=== PATIENT | male | born 1930 | race Caucasian/White ===

== ENCOUNTER 2016-07-23 18:52 | Emergency (ER) | payer OTHER ==
--- NOTE | 2016-07-23 19:49 | PROVIDER DOCUMENTATION ---
HPI-Male Problem - General Source: patient - History of Present Illness-Male Radiation: reports: none Severity in ED: reports: mild Onset/Duration: reports: this afternoon Timing: reports: still present Context/Activities at Onset: reports: none Urinary Symptoms: reports: hematuria Associated Symptoms: reports: denies symptoms Similar Symptoms Previously?: No Recently seen or treated by another doctor?: No <Cindy Cramer - Last Filed: 07/23/16 20:57> <Sahil Cordova - Last Filed: 07/23/16 21:03> - General Chief Complaint: Male Stated Complaint: PASSING BLOOD IN URINE Time Seen by Provider: 07/23/16 19:20 Allergies/Adverse Reactions: Patient Allergies Allergy/AdvReac Type Severity Reaction Status Date / Time No Known Allergies Allergy Verified 04/03/16 20:58 Home Medications: Home Medication List Medication Instructions Recorded Confirmed Last Taken Type Aspirin 81 mg PO DAILY 04/03/16 07/23/16 04/02/16 History 81 MG ATORVAstatin [Lipitor] 40 mg PO DAILY 07/23/16 07/23/16 Unknown History Celecoxib 200 mg PO BID PRN 07/23/16 07/23/16 Unknown History Indapamide 2.5 mg PO DAILY 07/23/16 07/23/16 Unknown History Metformin E.r. [Glucophage Xr] 2,000 mg PO DAILY 07/23/16 07/23/16 Unknown History Saxagliptin [Onglyza] 5 mg PO DAILY 07/23/16 07/23/16 Unknown History Sennosides/Docusate Sodium 1 tab PO DAILY 07/23/16 07/23/16 Unknown History [Docusate Sodium-Senna Tablet] - History of Present Illness-Male Nature of Presenting Problem: 86 year old M presents to the ED with a cc of urinating blood. Pt states that it began this afternoon. Pt states that he called his PCP but they were not in the office. Pt states that he talked to the head of conservation doctor and was told to come to the ED. (Cindy Cramer) Review of Systems - Adult - REVIEW OF SYSTEMS - ADULT Constitutional: denies: chills, fever Eyes: reports: no symptoms reported Ears, Nose, Mouth & Throat: reports: no symptoms reported Cardiovascular: reports: no symptoms reported Respiratory: denies: cough, shortness of breath Gastrointestinal: denies: nausea, vomiting Genitourinary: reports: hematuria. denies: dysuria Musculoskeletal: denies: muscle aches, muscle weakness Integumentary: denies: skin sores/ulcer, skin thickening Neurological: reports: no symptoms reported Psychiatric: reports: no symptoms reported Endocrine: reports: no symptoms reported Hematologic/Lymphatic: reports: no symptoms reported Allergic/Immunologic: reports: no symptoms reported All Other Systems: Reviewed and Negative <Cindy Cramer - Last Filed: 07/23/16 20:57> Past History - Adult - PAST MEDICAL HISTORY-ADULT Review of Records: reports: Nursing Assessment Review, Medications Reviewed Major Childhood Illnesses: reports: denies history Psychiatric: reports: anxiety, depression Endocrine/Immune: reports: Diabetes - PRIOR SURGERIES/PROCEDURES Surgical/Procedure History: reports: joint replacement - IMMUNIZATION STATUS Childhood Immunizations: See Nurse Assessment Flu Vaccine: See Nurse Assessment - SOCIAL HISTORY Smoking: non-smoker Substance Use: none/never Alcohol Use Frequency: never <Cindy Cramer - Last Filed: 07/23/16 20:57> Physical Exam-General - PHYSICAL EXAM-ADULT Initial Vital Signs Reviewed: Yes - CONSTITUTIONAL General Appearance: appears well, alert, no apparent distress - RESPIRATORY Respiratory: chest non-tender, lungs clear, normal breath sounds - CARDIOVASCULAR Cardiovascular: normal peripheral pulses, regular rate, rhythm, no edema - GASTROINTESTINAL (ABDOMEN) Abdominal Exam: normal bowel sounds, non tender, soft - SKIN Integumentary: normal color, normal turgor, warm/dry - PSYCHIATRIC Psych/Mental Status: normal mood/affect, normal thought content, normal thought process, oriented x 3 <Cindy Cramer - Last Filed: 07/23/16 20:57> Progress - CT/MRI 1 CT Study: Renal Stone Impression: Abnormal (Cholelithiasis, No renal stones, no hydronephrosis, No bowel obstruction, No abscess, Diverticulosis, Normal appendix, Fat filled left inguinal hernia: Dr. Castillo-radiologist) <Cindy Cramer - Last Filed: 07/23/16 20:57> <Sahil Cordova - Last Filed: 07/23/16 21:03> - PLAN OF CARE/RESULTS Progress/Plan/Lab Results: plan of care: imaging, labs Orders Category Date Time Status RENAL STONE SEARCH [CT] Stat Exams 07/23/16 19:15 Taken CBC WITH DIFF [HEME] Stat Lab 07/23/16 19:43 Completed COMPREHENSIVE METABOLIC PANEL [CHEM] Stat Lab 07/23/16 19:43 Completed PROTIME WITH INR PL [COAG] Stat Lab 07/23/16 19:[address] W/POSS RFLX CULT [URINALYSIS] Stat Lab 07/23/16 19:00 Completed URINE CULTURE [RM] Routine Lab 07/23/16 20:49 Ordered Laboratory Tests 07/23/16 07/23/16 07/23/16 19:00 19:43 19:43 WBC 8.79 RBC 4.48 L Hgb 13.4 L Hct 38.9 L MCV 86.8 MCH 29.9 MCHC 34.4 RDW Std Deviation 15.0 H Plt Count 190 MPV 10.5 H Immature Gran % (Auto) 0.1 Neut % (Auto) 60.7 Lymph % (Auto) 26.5 [place] % (Auto) 7.6 Eos % (Auto) 4.4 Baso % (Auto) 0.7 Immature Gran # (Auto) 0.01 Neut # (Auto) 5.33 Lymph # (Auto) 2.33 [place] # (Auto) 0.67 H Eos # (Auto) 0.39 Baso # (Auto) 0.06 PT INR Sodium 135 L Potassium 3.9 Chloride 100 Carbon Dioxide 21 L Anion Gap 15 BUN 23 H Creatinine 1.3 H Estimated GFR/1.73 m2 52 BUN/Creatinine Ratio 18 Glucose 155 H Calculated Osmolality 277 Calcium 9.1 Total Bilirubin 0.70 AST 36 H ALT 20 Alkaline Phosphatase 41 Total Protein 7.4 Albumin 4.4 Globulin 3.0 Albumin/Globulin Ratio 1.0 Urine Source VOIDED Urine Color RED Urine Clarity BLOODY A Urine pH 6.5 Ur Specific [place] 1.020 Urine Protein 3+(500 mg/dL) A Urine Ketones TRACE Urine Blood 4+ Urine Nitrite POSITIVE A Urine Bilirubin NEGATIVE Urine Urobilinogen 1+(1 mg/dL) Urine Microscopic RBC TNTC A Urine WBC 1+ A Urine Microscopic WBC <10 Urine Bacteria 1+ Urine Glucose TRACE(50 mg/dL) A 07/23/16 19:43 WBC RBC Hgb Hct MCV MCH MCHC RDW Std Deviation Plt Count MPV Immature Gran % (Auto) Neut % (Auto) Lymph % (Auto) [place] % (Auto) Eos % (Auto) Baso % (Auto) Immature Gran # (Auto) Neut # (Auto) Lymph # (Auto) [place] # (Auto) Eos # (Auto) Baso # (Auto) PT 12.9 INR 0.94 Sodium Potassium Chloride Carbon Dioxide Anion Gap BUN Creatinine Estimated GFR/1.73 m2 BUN/Creatinine Ratio Glucose Calculated Osmolality Calcium Total Bilirubin AST ALT Alkaline Phosphatase Total Protein Albumin Globulin Albumin/Globulin Ratio Urine Source Urine Color Urine Clarity Urine pH Ur Specific [place] Urine Protein Urine Ketones Urine Blood Urine Nitrite Urine Bilirubin Urine Urobilinogen Urine Microscopic RBC Urine WBC Urine Microscopic WBC Urine Bacteria Urine Glucose Vital Signs - 24 hr 07/23/16 18:59 Temperature 98 F Pulse Rate 81 Respiratory 18 Rate Blood Pressure 170/75 O2 Sat by Pulse 98 Oximetry Pt given results and will be d/c home w/o rx to follow up with urology. Pt verbally understood instructions. PT remained clinically stable throughout the course of the ED stay and will return if symptoms worsen. (Cindy Cramer) Departure <Cindy Cramer - Last Filed: 07/23/16 20:57> - Departure Time of Disposition Order: 21:02 Certified Medical Emergency: Emergent <Sahil Cordova - Last Filed: 07/23/16 21:03> - Departure DIAGNOSIS: Hematuria Disposition: HOME 01 Condition: Good Additional Instructions: Drink plenty of liquids. Follow up with Urologist. ED Follow Up Instructions: You have been treated by a care provider in the Emergency Department. These instructions are being provided to you so you can have an understanding of how to care for yourself upon discharge. Upon discharge from the Emergency Department, you are responsible for making arrangements for follow-up care by a physician of your choice. Take all prescribed medications as directed. Return to the Emergency Department immediately for any new or worsening symptoms. You may call the Physician Referral phone number at [phone] to obtain a list of Physicians who are taking new patients. Referrals: Justin Moe MD [Primary Care Provider] - Carlos Eduardo Baez MD [STAFF PHYSICIAN] - Attestation - Scribe Verification/Attestation Scribe:: Cindy Cramer Acting as Scribe for:: Sahil Cordova Scribe documention review:: This chart was documented by a scribe and accurately reflects the service the provider performed and the decisions made by the provider. <Cindy Cramer - Last Filed: 07/23/16 20:57> Physician Attestation - Physician Attestation I, the provider, attest to the following statement:: Sahil Cordova Physician documentation Attestation:: This documentation recorded by the scribe accurately reflects the service I personally performed and the decisions made by me. <Cindy Cramer - Last Filed: 07/23/16 20:57>
[2016-07-23 19:53] LABS: MANUAL DIFF NEEDED? NO
[2016-07-23 19:57] LABS: BASO% 0.7 % (0.0-0.8); EOS# 0.39 X1000 (0.0-0.7); EOS% 4.4 % (0.0-10.0); HEMATOCRIT 38.9 % (42.0-52.0); HEMOGLOBIN 13.4 g/dL (14.0-18.0); IMM GRAN# 0.01 X1000 (0.0-0.04); IMM GRAN% 0.1 % (0.0-0.5); LYMPH# 2.33 X1000 (1.2-3.4); LYMPH% 26.5 % (20.5-51.1); MCH 29.9 PG (27-31); MCHC 34.4 g/dL (33-37); MCV 86.8 FL (81-99); MONO# 0.67 X1000 (0.11-0.59); MONO% 7.6 % (1.7-9.3); MPV 10.5 FL (7.4-10.4); NEUT% 60.7 % (42.2-75.2); PLT 190 X1000 (130-400); RBC 4.48 XMIL (4.7-6.1)
[2016-07-23 20:14] LABS: ALBUMIN 4.4 g/dL (3.5-5.0); CALCIUM 9.1 mg/dL (8.8-10.2); POTASSIUM 3.9 mmol/L (3.5-5.1); TOTAL BILIRUBIN 0.7 mg/dL (0.20-1.00); TOTAL PROTEIN 7.4 g/dL (6.3-8.3)
[2016-07-23 20:15] LABS: URINE SOURCE VOIDED
[2016-07-23 20:19] LABS: INR 0.94 (0.86-1.15); PROTIME 12.9 Seconds (12.1-15.5)
[2016-07-23 20:49] LABS: BILIRUBIN URINE NEGATIVE (NEGATIVE); BLOOD URINE 4+ (NEGATIVE); CLARITY BLOODY (CLEAR); COLOR RED; LEUKOCYTES URINE 1+ (NEGATIVE); NITRITE URINE POSITIVE (NEGATIVE); PH URINE 6.5; URINE CULTURE PL NEEDED? YES; URINE RBC TNTC /HPF (<10); URINE WBC <10 /HPF (<10); UROBILINOGEN URINE 1+(1 mg/dL)
[2016-07-23 21:11] VITALS: BP 138/84
[2016-07-23] MEDS ORDERED: CIPRO PO ONE (21:16)
--- NOTE | 2016-07-24 08:34 | Diag Imaging Result Document ---
PROCEDURE NAME: RENAL STONE SEARCH - 07/23/2016 CT RENAL STONE SEARCH WITHOUT CONTRAST: TECHNIQUE: A dose reduction protocol was used. Compared to 04/03/2015. FINDINGS: There is no hydronephrosis or perinephric edema identified. There is no renal stone identified. There are artifacts from metallic left hip prosthesis which mildly limit detail at the pelvis. There is no evidence of bowel obstruction. The appendix is unremarkable. There is uncomplicated colonic diverticulosis which is most extensive at the descending and sigmoid colon. There is no abscess identified. There is no free air. There are multiple small calcified gallstones in the gallbladder. The gallbladder is not abnormally distended, and there is no pericholecystic inflammation seen. There is a fat-containing left inguinal hernia. There is no bowel-containing hernia seen. There are lumbar spine degenerative changes noted. IMPRESSION: 1. No evidence of renal stone or hydronephrosis. 2. No bowel obstruction. Unremarkable appendix. 3. Uncomplicated colonic diverticulosis. 4. Cholelithiasis. No pericholecystic inflammation. 5. Fat-containing left inguinal hernia. Lumbar spine degenerative changes. The on-call radiologist provided preliminary results at 7:57 p.m. on 07/23/2016.
== END 2016-07-23 21:24 | disposition home or self-care (01) ==
LOC: P.ED 18:52
DX: R31.9 Hematuria, unspecified (principal); K80.20 Calculus of gallbladder without cholecystitis without obstruction; K57.90 Diverticulosis of intestine, part unspecified, without perforation or abscess without bleeding; K40.90 Unilateral inguinal hernia, without obstruction or gangrene, not specified as recurrent; E11.9 Type 2 diabetes mellitus without complications; Z79.82 Long term (current) use of aspirin; Z79.899 Other long term (current) drug therapy; Z96.60 Presence of unspecified orthopedic joint implant
CPT/HCPCS: 74176; 80053; 81001; 85025; 85610; 87088

== ENCOUNTER 2016-10-30 08:11 | Inpatient (IN) ==
[2016-10-29 14:16] LABS: MANUAL DIFF NEEDED? NO; URINE MICRO REVIEW NEEDED? NO; URINE SOURCE VOIDED
--- NOTE | 2016-10-29 14:27 | EKG Report ---
Test Performed on : 10/29/2016 1:48:49 PM Test Reason : PAT Blood Pressure : / mmHG Vent. Rate : 068 BPM Atrial Rate : 068 BPM P-R Int : 170 ms QRS Dur : 094 ms QT Int : 452 ms P-R-T Axes : 081 033 064 degrees QTc Int : 480 ms Normal sinus rhythm. Prolonged QT Abnormal ECG No previous ECGs available Confirmed by Murali POLO, Darvin Pacheco ([id number]) on 10/29/2016 2:57:02 PM
[2016-10-29 14:29] LABS: BASO% 0.4 % (0.0-0.8); EOS# 0.34 X1000 (0.0-0.7); EOS% 2.6 % (0.0-10.0); HEMATOCRIT 38.2 % (42.0-52.0); HEMOGLOBIN 13.1 g/dL (14.0-18.0); IMM GRAN# 0.06 X1000 (0.0-0.04); IMM GRAN% 0.5 % (0.0-0.5); LYMPH# 1.88 X1000 (1.2-3.4); LYMPH% 14.2 % (20.5-51.1); MCH 30.9 PG (27-31); MCHC 34.3 g/dL (33-37); MCV 90.1 FL (81-99); MONO# 0.75 X1000 (0.11-0.59); MONO% 5.7 % (1.7-9.3); MPV 9.9 FL (7.4-10.4); NEUT% 76.6 % (42.2-75.2); PLT 356 X1000 (130-400); RBC 4.24 XMIL (4.7-6.1)
[2016-10-29 14:33] LABS: BILIRUBIN URINE NEGATIVE (NEGATIVE); BLOOD URINE NEGATIVE (NEGATIVE); COLOR YELLOW; GLUCOSE URINE NEGATIVE (NEGATIVE); LEUKOCYTES URINE NEGATIVE (NEGATIVE); NITRITE URINE NEGATIVE (NEGATIVE); PROTEIN URINE TRACE mg/dL (NEGATIVE); SP GRAVITY URINE 1.024; TURBIDITY URINE CLEAR (CLEAR); UROBILINOGEN URINE NORMAL (NORMAL)
[2016-10-29 14:34] LABS: UR EPITHELIAL CELLS <10 /HPF (<10); URINE BACTERIA NEGATIVE /HPF; URINE RBC <10 /HPF (<10); URINE WBC <10 /HPF (<10)
--- NOTE | 2016-10-29 14:57 | Diag Imaging Result Doc PS360 ---
CHEST-2 VIEWS - 10/29/2016 INDICATION: PAT TECHNIQUE: COMPARISON: 04/03/2016 FINDINGS: Stable calcified granuloma in the right lung base. There is some increasing linear atelectasis in the right lung base. Stable linear atelectasis in the left base. No focal infiltrates, pneumothorax, or pleural effusion. Heart size and pulmonary vascularity is normal. IMPRESSION: No significant abnormality. Electronically signed by Doroteo Burden 10/29/2016 2:54 PM
[2016-10-29 14:59] LABS: ALBUMIN 3.2 g/dL (3.5-5.0); CALCIUM 8.9 mg/dL (8.8-10.2); POTASSIUM 4.3 mmol/L (3.5-5.1); TOTAL BILIRUBIN 0.84 mg/dL (0.20-1.00); TOTAL PROTEIN 7.7 g/dL (6.3-8.3)
[2016-10-30] MEDS ORDERED: KEFZOL 1 GM/D5W 1 GM/50 ML IVPB ONE (09:12)
[2016-10-30] MEDS ORDERED: LR 1,000 ML ONE ×2 (09:12→11:13)
[2016-10-30] MEDS ORDERED: DIPRIVAN 1% ONE (10:14)
[2016-10-30] MEDS ORDERED: XYLOCAINE-MPF 2% ONE (10:15)
[2016-10-30] MEDS ORDERED: XYLOCAINE 2% JELLY ONE (10:16)
[2016-10-30] MEDS ORDERED: QUELICIN (DOSE) ONE ×3 (10:59→13:08)
[2016-10-30] MEDS ORDERED: MARCAINE 0.25% PF/EPI 1:200,000 ONE (11:13)
[2016-10-30] MEDS ORDERED: SODIUM CHLORIDE 0.9% ONE (11:13)
[2016-10-30] MEDS ORDERED: NORCURON ONE (11:27)
[2016-10-30] MEDS ORDERED: SODIUM CHLORIDE 0.9% 10 ML ONE (11:28)
[2016-10-30] MEDS ORDERED: FENTANYL ONE (12:05)
[2016-10-30] MEDS ORDERED: ZOFRAN ONE (12:08)
[2016-10-30] MEDS ORDERED: DECADRON ONE (12:08)
[2016-10-30] MEDS ORDERED: ROBINUL ONE (12:28)
[2016-10-30] MEDS ORDERED: NEOSTIGMINE ONE (12:29)
[2016-10-30] MEDS ORDERED: OFIRMEV 1000 MG/ISOTONIC SOLN 1,000 MG/100 ML BOTTLE ONE (12:54)
--- NOTE | 2016-10-30 13:31 | Diag Imaging Result Doc PS360 ---
EXAM: OPERATIVE CHOLANGIOGRAM HISTORY: GALLBLADDER TECHNIQUE: Single view taken during a procedure performed by Dr. Hickey. COMPARISON: None. FINDINGS: Contrast fills the common bile duct and has emptied into the duodenum. No stone or stricture. IMPRESSION: Normal intraoperative cholangiogram. Electronically signed by Pietro Castillo 10/30/2016 1:29 PM
[2016-10-30 13:43] LABS: URINE MICRO REVIEW NEEDED? NO; URINE SOURCE CATH
[2016-10-30 13:50] LABS: BILIRUBIN URINE NEGATIVE (NEGATIVE); BLOOD URINE TRACE (NEGATIVE); COLOR YELLOW; GLUCOSE URINE NEGATIVE (NEGATIVE); LEUKOCYTES URINE NEGATIVE (NEGATIVE); NITRITE URINE NEGATIVE (NEGATIVE); PH URINE 6.5; PROTEIN URINE NEGATIVE (NEGATIVE); SP GRAVITY URINE 1.016; TURBIDITY URINE CLEAR (CLEAR); UROBILINOGEN URINE NORMAL (NORMAL)
[2016-10-30 13:51] LABS: UR EPITHELIAL CELLS <10 /HPF (<10); URINE BACTERIA NEGATIVE /HPF; URINE RBC <10 /HPF (<10); URINE WBC <10 /HPF (<10)
[2016-10-30] MEDS ORDERED: MORPHINE PCA ONE (13:53)
[2016-10-30] MEDS: MORPHINE ONE ×2 (13:55→14:05)
[2016-10-30 14:15] LABS: ALLEN TEST YES; BE 1.1 mmoll (-3.0-3.0); BLOOD TYPE ARTERIAL; DRAW SITE R RADIAL; METHB 1.4 % (0.0-1.5); O2(CT) 16.1 mL/dL (15.0-23.0); PCO2(98.6) 48 mmHg (35-45); PO2(98.6) 320 mmHg (60-100); SAMPLE BLOOD; SAO2 99.6 % (95.0-100.0); THB 11.2 g/dL (11.5-17.4); pH(98.6) 7.36 (7.35-7.45)
[2016-10-30] MEDS ORDERED: 1/2 NS ONE (14:15)
[2016-10-30] MEDS ORDERED: D5 ONE (14:15)
[2016-10-30 14:17] LABS: MODALITY COOL AEROSOL
[2016-10-30] MEDS ORDERED: MORPHINE ONE (14:33)
--- NOTE | 2016-10-30 14:37 | OPERATIVE NOTE ---
PROCEDURE DATE: 10/30/2016 PREOPERATIVE DIAGNOSES: 1. Cholecystitis. 2. Cholelithiasis. 3. Elevated liver functions. POSTOPERATIVE DIAGNOSIS: Gangrenous acute cholecystitis. PROCEDURE: Laparoscopy with laparotomy and cholangiogram. The patient has brought to the operating room. After satisfactory induction of IV and endotracheal anesthesia, athrombic TEDs and Ochoa catheter were placed. His abdomen was broadly prepped and draped in the appropriate manner for laparoscopy. Initially, the infraumbilical area was infiltrated with 0.25% Marcaine with epinephrine. Dissection was taken sharply down through skin and subcutaneous tissue. Fascia was tacked with 0 Surgilon and incised. Under direct visualization, a Alicia trocar was placed. The abdomen was insufflated to 3.5 L of carbon dioxide. On introduction of the camera, there was seen to be a dense phlegmon in the upper abdomen around the gallbladder fossa area. In the right epigastrium a 10 mm trocar was placed after infiltration with Xylocaine and Marcaine and lateral 5 mm trocars were placed. The patient was repositioned. Attempts at identification of the gallbladder were unsuccessful. For this reason, the laparoscopic portion was canceled and open right subcostal laparotomy was performed. All trocars were removed. The rectus muscle on the right side was divided with electrocautery. The peritoneum was entered. Viscera were packed inferiorly with digital dissection and sharp dissection. The gallbladder was eventually delivered. It did decompress purulence and multiple stones. Eventually the gallbladder was freed up down to the cystic duct and cystic artery. The cystic duct cholangiogram revealed good flow of contrast into the duodenum with no obstruction. The catheter was removed. The duct was doubly clipped and divided as was the cystic artery and the gallbladder was removed. The wound was irrigated. All the loose stones were retrieved that could be seen. Two Murali-He drains were threaded through separate 5 mm trocar incisions, 1 to the right subphrenic space and 1 to the gallbladder fossa. After satisfactory accounting for all laparotomy sponges, closure was subsequently initiated. The peritoneum was closed in a single running layer of #1 Vicryl. All layers were irrigated exiting the abdomen. The fascia was closed with running #1 Maxon. Subcutaneous was closed with 3-0 Vicryl and the skin itself with stainless steel clips. The infraumbilical incision underwent fascial closures of 0 Surgilon and again closed with stainless steel clips after Betadine irrigation. The patient was subsequently awakened in the operating room. He was left intubated for now. Ochoa catheter was left indwelling. Estimated blood loss was around 200 mL. He had about 50 mL of urine output. Nasogastric tube had been palpated in the stomach prior to closure of the laparotomy. He will be transferred to ICU in guarded condition and with infectious disease consult. cc: Roney Hickey MD
[2016-10-30] MEDS ORDERED: TYLENOL PO PRN (15:35)
[2016-10-30] MEDS ORDERED: BENADRYL IV PRN (15:38)
[2016-10-30] MEDS ORDERED: SODIUM CHLORIDE 0.9% INJ PRN (15:38)
[2016-10-30] MEDS ORDERED: PHENERGAN IV PRN (15:38)
[2016-10-30] MEDS ORDERED: NARCAN IV PRN (15:38)
[2016-10-30] MEDS: LR 1,000 ML IV SCH (16:22)
[2016-10-30] MEDS: D5 1/2 NS 1,000 ML IV SCH ×2 (16:25→22:08)
--- NOTE | 2016-10-30 17:35 | CONSULTATION ---
DATE OF CONSULTATION: 10/30/2016 CONCLUSION: Patient is status post cholecystectomy for gangrenous cholecystitis. Gram stain of the material in the gallbladder shows gram positive cocci. RECOMMENDATIONS: I agree with Dr. Hickey' choice of Zosyn and daptomycin pending culture results. DISCUSSION: The patient told me that approximately 1 week ago he started having abdominal pain and it seemed to be fairly well generalized all over all of his abdomen. He initially was admitted to the hospital. He is status post cholecystectomy for a gangrenous cholecystitis. The patient's lab studies [place] [address], hemoglobin 13.1, and platelet count 356,000. Creatinine is 1.2. The GFR is 57. Blood gases show a pH of 7.36, a PO2 of 320 and a pCO2 of 48. Urinalysis showed no bacteria or white cells. The patient's gallbladder fluid on Gram stain showed gram positive cocci. PAST MEDICAL HISTORY/REVIEW OF SYSTEMS: Eyes and ears: Patient has decreased hearing but his vision is okay. Neck: No stiffness. Respiratory: No cough or shortness of breath. : No dysuria or flank pain. GI: See above. Bones, joints, muscles: No joint pain or myalgias. Endocrine: Patient has pre diabetes. Does not have thyroid disease. Neurologic: No seizures or loss of motor or sensory function. Hematologic: No anemia or bleeding tendency. The remainder of the patient's review of systems was completed and was negative. PREVIOUS HOSPITALIZATIONS AND OPERATIONS: He has had a left total hip arthroplasty and laminectomy. MEDICAL DISEASES: Positive for pre diabetes and diverticulitis. INFECTIOUS DISEASE HISTORY: Negative for pneumonia and UTI. FAMILY HISTORY: Negative for diabetes mellitus, and cancer. [place]IAL HISTORY[place] He is [place] from working at [employer]. ALLERGIES: His chart lists no known drug allergies. MEDICATIONS: His home medications include the following Onglyza, Zantac, Claritin, celecoxib, Lipitor and aspirin. PHYSICAL EXAMINATION: Vital Signs: Temperature is 98.3 degrees, pulse 89, respirations 24, blood pressure 129/84. Generally: This is a somewhat ill-appearing, elderly male. He is in no acute distress. Head, eyes, ears, nose, and throat: He had decreased hearing. He can see near objects. There is no drainage from the nose or ears. Neck: No meningismus. Thorax: No increased AP diameter. Lungs: Clear to auscultation. Cardiovascular: Heart rate is regular. Abdomen: Soft. I did not push very hard. I did not hear any bowel sounds. The patient's dressing is intact. Neurologic: He is lethargic. He has just come from the recovery room. He answered questions. He follows requests to move his extremities. There was no tremor. His memory, as regarding his medical history was slightly diminished. Integument: No rash noted. Thank you for the consult. cc: MD Roney Salmeron MD
[2016-10-30] MEDS: PROTONIX IV SCH (17:37)
[2016-10-30] MEDS: ZOSYN 3.375 GM/NS 3.375 GM/50 ML IVPB IV SCH ×2 (17:37→22:07)
[2016-10-30] MEDS: SODIUM CHLORIDE 0.9% INJ SCH (17:38)
[2016-10-30] MEDS: CUBICIN (FOR INPATIENT USE) 600 MG in NS 100 ML IV SCH (17:57)
[2016-10-31] MEDS: ZOSYN 3.375 GM/NS 3.375 GM/50 ML IVPB IV SCH ×3 (04:15→16:24)
[2016-10-31] MEDS: D5 1/2 NS 1,000 ML IV SCH ×2 (04:27→09:12)
[2016-10-31] MEDS: MORPHINE PCA IV PRN (06:03)
--- NOTE | 2016-10-31 06:10 | Diag Imaging Result Doc PS360 ---
EXAM: CHEST-PORTABLE HISTORY: Post op TECHNIQUE: Portable AP COMPARISON: 10/29/2016 FINDINGS: A nasogastric tube has been placed and overlies the esophagus and stomach. Poor inspiratory effort. Heart is not enlarged. The vessels are not distended. There is a calcified granuloma in the right base. No consolidation. Atelectasis versus scarring in the left base. IMPRESSION: 1.Nasogastric tube overlies the esophagus and stomach 2.Poor inspiratory effort Electronically signed by Pietro Castillo 10/31/2016 6:08 AM
--- NOTE | 2016-10-31 06:20 | EKG Report ---
Test Performed on : 10/31/2016 05:56:07 AM Test Reason : Post op Blood Pressure : / mmHG Vent. Rate : 071 BPM Atrial Rate : 071 BPM P-R Int : 164 ms QRS Dur : 096 ms QT Int : 422 ms P-R-T Axes : 033 003 064 degrees QTc Int : 458 ms Normal sinus rhythm. Normal ECG When compared with ECG of 29-OCT-2016 13:48, No significant change was found Confirmed by Murali POLO, Darvin Pacheco ([id number]) on 11/04/2016 2:13:48 PM
[2016-10-31 06:43] LABS: ALBUMIN 2.4 g/dL (3.5-5.0); POTASSIUM 4.1 mmol/L (3.5-5.1); TOTAL BILIRUBIN 0.97 mg/dL (0.20-1.00); TOTAL PROTEIN 5.8 g/dL (6.3-8.3)
[2016-10-31 06:47] LABS: BASO% 0.2 % (0.0-0.8); EOS# 0.08 X1000 (0.0-0.7); EOS% 0.5 % (0.0-10.0); HEMATOCRIT 33.3 % (42.0-52.0); HEMOGLOBIN 11.5 g/dL (14.0-18.0); IMM GRAN# 0.05 X1000 (0.0-0.04); IMM GRAN% 0.3 % (0.0-0.5); LYMPH# 1.37 X1000 (1.2-3.4); LYMPH% 8.4 % (20.5-51.1); MANUAL DIFF NEEDED? NO; MCH 31.3 PG (27-31); MCHC 34.5 g/dL (33-37); MCV 90.7 FL (81-99); MONO# 0.84 X1000 (0.11-0.59); MONO% 5.1 % (1.7-9.3); MPV 9.9 FL (7.4-10.4); NEUT% 85.5 % (42.2-75.2); PLT 324 X1000 (130-400); RBC 3.67 XMIL (4.7-6.1)
[2016-10-31] MEDS: ONGLYZA PO SCH (09:00)
[2016-10-31] MEDS: LOZOL PO SCH (09:13)
[2016-10-31] MEDS ORDERED: ZOFRAN IV PRN (09:32)
[2016-10-31] MEDS ORDERED: ZOFRAN PO PRN (09:34)
[2016-10-31] MEDS: D5 1/2 NS + KCL 20 MEQ 1,000 ML IV SCH (11:16)
--- NOTE | 2016-10-31 16:54 | PROGRESS NOTE ---
DATE: 10/31/2016 CONCLUSION: Patient is status post cholecystectomy for gangrenous cholecystitis. The culture from the gallbladder is growing presumptively a methicillin-resistant Staph aureus. MEDICATIONS: Patient already is receiving daptomycin and Zosyn. Even though thus far only methicillin-resistant Staph aureus grew I think we should continue with Zosyn in case the patient should grow more organisms from his bile. PHYSICAL EXAMINATION: Vital Signs: Temperature is 98.7 degrees, pulse 92, respirations 20, blood pressure 134/64. General: This is a fairly healthy-appearing, elderly male even though he was just operated on. Lungs: Clear to auscultation. Cardiovascular: Regular heart rate. Abdomen: There were no bowel sounds. The abdomen was soft and it was not tender with very light palpation. The patient has dressings on the abdomen which are all intact. LAB AND X-RAY: Chest x-ray shows no consolidation. A culture of the gallbladder as mentioned above, grew methicillin-resistant Staph aureus. [place] [address], hemoglobin 11.5, and platelet count 324,000. Creatinine is 1.2. GFR is 57. Liver function studies are better in that they are decreasing. ASSESSMENT AND PLAN: Patient is status post cholecystectomy. As mentioned above, we definitely want to keep going with daptomycin because of the finding of a methicillin-resistant Staph aureus in the culture but I think we should continue with Zosyn until we get the final results back from the gallbladder culture. COMORBIDITIES: He is elderly and he says he has pre diabetes and also in the past has had diverticulitis. cc: MD Roney Salmeron MD
[2016-10-31] MEDS: PROTONIX IV SCH (17:46)
[2016-10-31] MEDS: SODIUM CHLORIDE 0.9% INJ SCH (17:46)
[2016-10-31] MEDS: CUBICIN (FOR INPATIENT USE) 600 MG in NS 100 ML IV SCH (17:46)
[2016-10-31] MEDS: LR 1,000 ML IV SCH (18:27)
[2016-11-01] MEDS: ZOSYN 3.375 GM/NS 3.375 GM/50 ML IVPB IV SCH ×5 (00:04→23:59)
[2016-11-01] MEDS: D5 1/2 NS + KCL 20 MEQ 1,000 ML IV SCH ×2 (00:04→14:50)
[2016-11-01] MEDS: MORPHINE PCA IV PRN (04:33)
[2016-11-01 05:16] LABS: MANUAL DIFF NEEDED? NO
[2016-11-01] MEDS: LOVENOX SUBQ SCH (05:16)
[2016-11-01 05:18] LABS: BASO% 0.3 % (0.0-0.8); EOS# 0.25 X1000 (0.0-0.7); EOS% 1.5 % (0.0-10.0); HEMATOCRIT 40.3 % (42.0-52.0); HEMOGLOBIN 13.1 g/dL (14.0-18.0); IMM GRAN# 0.05 X1000 (0.0-0.04); IMM GRAN% 0.3 % (0.0-0.5); LYMPH# 1.58 X1000 (1.2-3.4); LYMPH% 9.7 % (20.5-51.1); MCH 30.6 PG (27-31); MCHC 32.5 g/dL (33-37); MCV 94.2 FL (81-99); MONO% 7.3 % (1.7-9.3); MPV 9.6 FL (7.4-10.4); NEUT% 80.9 % (42.2-75.2); PLT 312 X1000 (130-400); RBC 4.28 XMIL (4.7-6.1)
[2016-11-01 05:46] LABS: ALBUMIN 2.4 g/dL (3.5-5.0); CALCIUM 8.3 mg/dL (8.8-10.2); POTASSIUM 4.4 mmol/L (3.5-5.1); TOTAL BILIRUBIN 1.09 mg/dL (0.20-1.00); TOTAL PROTEIN 6.8 g/dL (6.3-8.3)
--- NOTE | 2016-11-01 08:45 | Diag Imaging Result Doc PS360 ---
CHEST-PORTABLE - 11/01/2016 INDICATION: post op TECHNIQUE: COMPARISON: 10/31/2016 FINDINGS: The nasogastric tube has been removed. Lung volumes remain critically low. Stable linear atelectasis in the lung bases left greater than right. No substantial infiltrates or pleural effusion. Stable calcified granulomas in the right base and hilum. Heart size is probably normal. IMPRESSION: Nasogastric tube removed. Otherwise no change from prior. Electronically signed by Doroteo Burden 11/01/2016 8:43 AM
[2016-11-01] MEDS ORDERED: DULCOLAX PR ONE (08:57)
[2016-11-01] MEDS: LOZOL PO SCH (12:31)
[2016-11-01] MEDS: ONGLYZA PO SCH (12:31)
[2016-11-01] MEDS: FLOMAX PO SCH (14:52)
[2016-11-01] MEDS: PROTONIX IV SCH (17:31)
[2016-11-01] MEDS: SODIUM CHLORIDE 0.9% INJ SCH (17:31)
[2016-11-01] MEDS ORDERED: BENADRYL PO PRN (17:43)
[2016-11-01] MEDS: CUBICIN (FOR INPATIENT USE) 600 MG in NS 100 ML IV SCH (18:15)
[2016-11-01] MEDS ORDERED: FLEET ENEMA PR ONE (21:00)
[2016-11-02] MEDS: D5 1/2 NS + KCL 20 MEQ 1,000 ML IV SCH ×3 (03:33→18:49)
[2016-11-02] MEDS: LOVENOX SUBQ SCH (05:06)
[2016-11-02] MEDS: ZOSYN 3.375 GM/NS 3.375 GM/50 ML IVPB IV SCH ×3 (05:09→22:01)
[2016-11-02 07:50] LABS: MANUAL DIFF NEEDED? NO
[2016-11-02 08:02] LABS: BASO% 0.2 % (0.0-0.8); EOS# 0.42 X1000 (0.0-0.7); EOS% 3.6 % (0.0-10.0); HEMATOCRIT 32.2 % (42.0-52.0); HEMOGLOBIN 10.8 g/dL (14.0-18.0); IMM GRAN# 0.03 X1000 (0.0-0.04); IMM GRAN% 0.3 % (0.0-0.5); LYMPH# 1.33 X1000 (1.2-3.4); LYMPH% 11.4 % (20.5-51.1); MCH 30.5 PG (27-31); MCHC 33.5 g/dL (33-37); MONO# 0.73 X1000 (0.11-0.59); MONO% 6.3 % (1.7-9.3); MPV 9.9 FL (7.4-10.4); NEUT% 78.2 % (42.2-75.2); PLT 296 X1000 (130-400); RBC 3.54 XMIL (4.7-6.1)
[2016-11-02] MEDS: LOZOL PO SCH (09:40)
[2016-11-02] MEDS: ONGLYZA PO SCH (09:41)
[2016-11-02] MEDS: FLOMAX PO SCH (09:41)
[2016-11-02] MEDS: NORCO-10 PO PRN (16:23)
[2016-11-02] MEDS: PROTONIX IV SCH (18:00)
[2016-11-02] MEDS: SODIUM CHLORIDE 0.9% INJ SCH (18:00)
[2016-11-02] MEDS: CUBICIN (FOR INPATIENT USE) 600 MG in NS 100 ML IV SCH (18:07)
[2016-11-02] MEDS: MORPHINE IV PRN (23:11)
[2016-11-03] MEDS: ZOSYN 3.375 GM/NS 3.375 GM/50 ML IVPB IV SCH (03:51)
[2016-11-03] MEDS: MORPHINE IV PRN (03:52)
[2016-11-03] MEDS: LOVENOX SUBQ SCH (05:19)
--- NOTE | 2016-11-03 06:26 | EKG Report ---
Test Performed on : 11/01/2016 06:18:51 AM Test Reason : post op Blood Pressure : / mmHG Vent. Rate : 091 BPM Atrial Rate : 091 BPM P-R Int : 174 ms QRS Dur : 094 ms QT Int : 370 ms P-R-T Axes : 030 -03 044 degrees QTc Int : 455 ms Normal sinus rhythm. Normal ECG When compared with ECG of 31-OCT-2016 05:56, (Unconfirmed) No significant change was found Confirmed by Murali POLO, Darvin Pacheco ([id number]) on 11/04/2016 2:14:51 PM
[2016-11-03] MEDS: D5 1/2 NS + KCL 20 MEQ 1,000 ML IV SCH ×4 (07:49→21:22)
[2016-11-03] MEDS: FLOMAX PO SCH (07:59)
[2016-11-03] MEDS: ONGLYZA PO SCH (07:59)
[2016-11-03] MEDS: LOZOL PO SCH (07:59)
[2016-11-03] MEDS ORDERED: NS 250 ML ONE (08:11)
--- NOTE | 2016-11-03 08:16 | PROGRESS NOTE ---
DATE: 11/03/2016 PRESENT ILLNESS: The patient is status post cholecystectomy for gangrenous cholecystitis. Culture from the gallbladder grew methicillin-resistant Staphylococcus aureus. MEDICATIONS: The patient is on Zosyn and daptomycin. PHYSICAL EXAMINATION: Vital Signs: Temperature is 98.1 degrees, pulse 76, respirations 20, blood pressure 145/60. General: This is a somewhat ill-appearing, elderly male. He is in no acute distress. He has been improving following surgery. Lungs: Clear to auscultation. Cardiovascular: Regular heart rate. Abdomen: Soft and nontender. The dressing on the abdomen is intact. Neurologic: Patient is alert. He can move his extremities. There is no tremor. LAB AND X-RAY: Chest x-ray shows atelectasis but no infiltrate. CBC shows a white count of 11,640, hemoglobin 10.8, and platelet count 296,000. Creatinine is 1.6. GFR is 41. Liver function studies are normal except for an AST of 96. ASSESSMENT AND PLAN: Postop cholecystectomy for gangrenous cholecystitis. Plan IV daptomycin for 4 weeks. COMORBIDITY: The patient's comorbidities include he is elderly, he has prediabetes and in the past has had diverticulitis. I plan to see the patient in my office in 4 weeks and at that time, if he is doing well, we will stop his daptomycin and take out his PICC. cc: MD Roney Salmeron MD MTDD
[2016-11-03 08:49] LABS: INR 1.01; PROTIME 10.6 Seconds (9.2-11.7)
[2016-11-03] MEDS: PROTONIX IV SCH (17:05)
[2016-11-03] MEDS: SODIUM CHLORIDE 0.9% INJ SCH (17:05)
[2016-11-03] MEDS: DOXYCYCLINE PO SCH ×2 (21:26)
[2016-11-04] MEDS: MORPHINE IV PRN ×2 (03:30→23:24)
--- NOTE | 2016-11-04 03:41 | PROGRESS NOTE ---
DATE: 11/03/2016 ADDENDUM: Patient has been receiving daptomycin and feels good on it. I checked a CPK today and it was [id number] which undoubtedly is due to rhabdomyolysis secondary to daptomycin. I discontinued daptomycin and placed the patient on doxycycline. The patient is already getting IV fluids. cc: MD Roney Salmeron MD
[2016-11-04] MEDS: LOVENOX SUBQ SCH (05:55)
--- NOTE | 2016-11-04 08:55 | PROGRESS NOTE ---
DATE: 11/04/2016 PRESENT ILLNESS: The patient is status post cholecystectomy for gangrenous cholecystitis. A culture from the gallbladder grew methicillin-resistant Staphylococcus aureus. MEDICATIONS: The patient previously had been on Zosyn and daptomycin. Because the patient's CPK sai to 1785, I discontinued both antibiotics and started the patient on p.o. doxycycline. The elevation in the CPK is due to a side effect from daptomycin, namely rhabdomyolysis. PHYSICAL EXAMINATION: Vital Signs: Temperature is 98.2 degrees, pulse 78, respirations 16, blood pressure 136/56. Generally: The patient is alert. He can move his extremities and he is not having any myalgias. Lungs: Clear to auscultation. Cardiovascular: Regular heart rate. Abdomen: Soft and not tender. A drain is in place in the right upper quadrant. LAB AND X-RAY: There is no new lab today. Yesterday, as mentioned above, the patient's CPK was 1785. There are no new radiographic studies today either. ASSESSMENT AND PLAN: The patient is status post cholecystectomy for a gangrenous methicillin- resistant Staphylococcus aureus cholecystitis. The plan is to treat the patient now with antibiotics for a 4 week period. As mentioned above, I stopped daptomycin and the patient now is on doxycycline. I am putting a prescription in the chart for the patient to get doxycycline from his pharmacist after he goes home. COMORBIDITIES: He is elderly. He has prediabetes and diverticulitis. He unfortunately developed cholecystitis. When the patient goes home, we will take out his PICC and stop daptomycin. cc: MD Roney Salmeron MD
[2016-11-04] MEDS: ONGLYZA PO SCH (09:06)
[2016-11-04] MEDS: D5 1/2 NS + KCL 20 MEQ 1,000 ML IV SCH ×2 (09:06→20:32)
[2016-11-04] MEDS: LOZOL PO SCH (09:06)
[2016-11-04] MEDS: FLOMAX PO SCH (09:07)
[2016-11-04] MEDS: DOXYCYCLINE PO SCH ×2 (09:07→20:27)
[2016-11-04] MEDS: NORCO-10 PO PRN (14:25)
[2016-11-04] MEDS: SODIUM CHLORIDE 0.9% INJ SCH (18:30)
[2016-11-04] MEDS: PROTONIX IV SCH (18:30)
[2016-11-05] MEDS: LOVENOX SUBQ SCH (05:38)
[2016-11-05 05:46] LABS: MANUAL DIFF NEEDED? NO
[2016-11-05 06:24] LABS: BASO% 0.3 % (0.0-0.8); EOS# 0.29 X1000 (0.0-0.7); EOS% 3.2 % (0.0-10.0); HEMOGLOBIN 9.9 g/dL (14.0-18.0); IMM GRAN# 0.03 X1000 (0.0-0.04); IMM GRAN% 0.3 % (0.0-0.5); LYMPH# 1.32 X1000 (1.2-3.4); LYMPH% 14.7 % (20.5-51.1); MCV 90.9 FL (81-99); MONO# 0.55 X1000 (0.11-0.59); MONO% 6.1 % (1.7-9.3); MPV 9.7 FL (7.4-10.4); NEUT% 75.4 % (42.2-75.2); PLT 339 X1000 (130-400)
[2016-11-05 07:17] LABS: AGAP 13; BUN 22 mg/dL (8-22); CALCIUM 8.5 mg/dL (8.8-10.2); CHLORIDE 100 mmol/L (98-107); COSMO 277; POTASSIUM 4.6 mmol/L (3.5-5.1); SODIUM 136 mmol/L (136-145); TCO2 23 mmol/L (25-35)
--- NOTE | 2016-11-05 07:57 | PROGRESS NOTE ---
DATE: 11/05/2016 PRESENT ILLNESS: The patient is status post cholecystectomy for a methicillin- resistant Staphylococcus aureus gangrenous cholecystitis. The patient was on daptomycin but his CPK became elevated. MEDICATIONS: The daptomycin and Zosyn have been discontinued and yesterday, the patient was started on doxycycline. Thus far, he is tolerating it well. PHYSICAL EXAMINATION: Vital Signs: Temperature is 98.7 degrees, pulse 98, respirations 16, blood pressure 128/84. General: This is a somewhat ill-appearing, elderly male. He is in no acute distress. Lungs: Clear to auscultation. Cardiovascular: Regular heart rate. Abdomen: Soft and nontender to light palpation. There is a dressing in place in the right upper quadrant. The dressing is intact. LAB AND X-RAY: There is no new x-ray today. The patient's CBC shows a white count of 8980, hemoglobin 9.9, platelet count 339,000. Creatinine is 1.1. GFR is greater than 60. Stool for Clostridium difficile toxin and antigen were negative. The patient had a CPK drawn this morning, the results of which are pending. ASSESSMENT AND PLAN: The patient has methicillin-resistant Staphylococcus aureus cholecystitis and the patient is status post cholecystectomy. The plan is to send the patient home on doxycycline. I have electronically sent the patient's prescription for doxycycline, which was for 4 weeks, which would be 60 tablets. He will be taking the doxycycline in a dose of 100 mg every 12 hours. The prescription for doxycycline has been electronically sent to the patient's pharmacist. Dr. Hickey will be seeing the patient in followup his office and I will be seeing the patient in 4 weeks, which is when his a prescription for doxycycline have run out by that time. I ordered for the PICC to be removed when the patient is discharged. COMORBIDITIES: He is elderly and he also has prediabetes and diverticulitis. cc: MD Roney Salmeron MD MTDD
[2016-11-05 08:10] VITALS: BP 116/63
[2016-11-05] MEDS: LOZOL PO SCH (09:03)
[2016-11-05] MEDS: FLOMAX PO SCH (09:03)
[2016-11-05] MEDS: DOXYCYCLINE PO SCH (09:03)
[2016-11-05] MEDS: ONGLYZA PO SCH (09:03)
[2016-11-05] MEDS: D5 1/2 NS + KCL 20 MEQ 1,000 ML IV SCH (10:43)
--- NOTE | 2016-11-06 16:48 | DISCHARGE SUMMARY ---
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 CONSULTATIONS: To Dr. Tommy Negrete of Infectious Disease. The patient is an 86-year-old white male referred for evaluation of symptomatic biliary tract disease. Outpatient ultrasound revealed multiple stones in his gallbladder. He was admitted on the day of surgery and there was seen to be a large dense phlegmon with gangrenous changes of the gallbladder. Open cholecystectomy was required. Two Murali-He drains were placed. Cultures eventually grew MRSA. Dr. Tommy Negrete was consulted. The patient was started on Zosyn and Cubicin. He did improve during his hospitalization. Had some postoperative diarrhea that was controlled by local measures. C. difficile titer was negative. He eventually had his drains removed. His dietary advancements were well tolerated. Discharge medication includes doxycycline for 10 days, [place] 10, Zofran, multivitamins with iron. He is to be seen in the office on 11/10. His wounds appear to be well healed. cc: Roney Hickey MD
== END 2016-11-05 14:05 | disposition home health service (06) ==
LOC: OR 08:11 → SURHOLD 13:07 → INTOOBSV 13:07 → ICU 15:18 → 4N 10-31 12:33
PROVIDERS: ADMIT Surgery; ATTEND Surgery